=== PATIENT | female | born 1975 | race African-American/Black ===

== ENCOUNTER 2022-03-19 22:51 | Emergency (ER) | payer OTHER ==
[~2022-03-19] VITALS: Ht 162.6 cm; Wt 65.8 kg
[2022-03-19 23:01] VITALS: BP 138/98
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
[2022-03-19] MEDS ORDERED: FLUORESCEIN SODIUM OPHTH 1 EA STRIP ONE (23:06)
--- NOTE | 2022-03-19 23:22 | NUR ---
IRRIGATION OF BILATERAL EYES BEING DONE
[2022-03-19] MEDS ORDERED: FLUORESCEIN SODIUM OPHTH 1 EA STRIP OP ONE (23:30)
[2022-03-19] MEDS ORDERED: TETRACAINE HCL 0.5% OPHTALMIC 15 ML BOTTLE OP ONE (23:30)
[2022-03-20] MEDS ORDERED: CIPR2.5D14 EACHEYE (00:10)
--- NOTE | 2022-03-20 00:18 | NUR ---
Patient discharged to home in stable condition. RX Written and verbal after care instructions given. Patient verbalizes understanding of instruction.
== END 2022-03-20 01:44 | disposition home or self-care (01) ==
LOC: ER 22:56
DX: S05.02XA Injury of conjunctiva and corneal abrasion without foreign body, left eye, initial encounter (principal); S05.01XA Injury of conjunctiva and corneal abrasion without foreign body, right eye, initial encounter; Z60.2 Problems related to living alone; Z79.899 Other long term (current) drug therapy; X58.XXXA Exposure to other specified factors, initial encounter; Y93.89 Activity, other specified; Y92.89 Other specified places as the place of occurrence of the external cause; Y99.8 Other external cause status